=== PATIENT | female | born 1980 | race Caucasian/White ===

== ENCOUNTER 2023-05-13 22:37 | Emergency (ER) | payer OTHER, SELFPAY ==
[2023-05-13 22:39] VITALS: BP 110/69; PULSE 84; RESP 16; TEMP 36.3; O2SAT 97; BMI 30.6
--- NOTE | 2023-05-13 22:57 | US_ITS ---
ACR Level 3 findings have been noted. An addendum which confirms receipt of the report will follow. EXAM: US PELVIS TRANSVAGINAL CLINICAL INDICATION: Recent miscarriage-bleeding with large clots TECHNIQUE: Transvaginal pelvic ultrasound was performed with grayscale and color Doppler imaging. Transvaginal imaging was used for better evaluation of the endometrium and adnexa. COMPARISON: No relevant prior studies available. FINDINGS: UTERUS/CERVIX: Thickened and heterogeneous endometrial complex containing anechoic areas and measuring up to 2.5 cm in thickness. There is associated internal blood flow. Uterus measures 11.0 x 8.2 x 6.7 cm. Anteverted. There is no uterine mass. RIGHT OVARY: Blood flow demonstrated to both ovaries. Right ovary measures 3.6 x 2.3 x 2.2 cm. Left ovary measures 5.1 x 3.6 x 2.3 cm and contains a 2.9 cm dominant follicular cyst. LEFT OVARY: See above. FREE FLUID: No adnexal mass. Small amount of free fluid in pelvic cul-de-sac. BLADDER: Empty bladder which cannot be evaluated with this probe. US/Transvaginal Non- IMPRESSION: Findings are concerning for retained products of conception. Benign ovaries. Electronically Signed: Flavio Pacheco MD at 0:26 EDT ,
[2023-05-13 23:19] LABS: Mucous, Urine 0 SEEN /hpf (<or=2+); Squamous Epithelial Cells - UA 0 SEEN /hpf (5-10)
[2023-05-13 23:21] LABS: Color, Urine Red (Yellow); Glucose, Dipstick Normal (Normal); Ketone-Dipstick 5 mg/dl (Negative); Leukocyte Esterase-Dipstick 100 /ul (Negative); Nitrite-Dipstick Negative (Negative); Occult Blood-Urine 250 /ul (Negative); Protein-Dipstick 100 mg/dl (Negative); Urine Bilirubin Dipstick Negative (Negative); Urine Clarity Cloudy (Clear); Urine Urobilinogen Normal (Normal)
--- NOTE | 2023-05-13 23:35 | EDS_ITS ---
HPI HPI - Female History of Present Illness Chief Complaint: Vag Bleeding Informant: patient and spouse/S.O. Bleeding Issue: Positive for Vaginal bleeding and Passing clots Onset: Days (3) Context: Gradual Onset Timing: Continuous Current Severity: Heavy Maximum Severity: Heavy Associated Symptoms Associated Symptoms: Negative for Dysuria or Frequency Narrative Narrative: Patient presents with vaginal bleeding and passing clots that has been constant for the last 3 days. Patient states it is heavier than her normal period. Patient is passing large clots. Patient had a recent miscarriage. Patient is unsure if her miscarriage was completed or not. Patient was approximately 13 weeks at the time of the miscarriage. Patient denies any pelvic pain. Patient admits to some mild back pain. Patient denies any urinary complaints. PFSH COUNT INCLUDES THE [facility] Medical History (Updated 05/14/23 @ 01:[address] Adam Sandy DO) Lyme disease Medical History no medical history Allergy/AdvReac Type Severity Reaction Status Date / Time No Known Allergies Allergy Verified 05/13/23 23:16 Surgical History (Updated 05/13/23 @ 23:[address] Adam Sandy DO) Hx of dilation and curettage Social History Smoking Status: Never smoker ROS ROS ED Constitutional Constitutional ED: Denies chills or fever(s) Eyes Eyes: Denies blurry vision or change in vision ENT ENT ED: Denies rhinorrhea or sore throat Cardiovascular Cardiovascular: Denies chest pain or palpitations Respiratory/Chest Respiratory/Chest: Denies cough or dyspnea Gastrointestinal Gastrointestinal: Denies nausea or vomiting Genitourinary Genitourinary ED: Denies dysuria or hematuria Musculoskeletal Musculoskeletal: Reports back pain; Denies neck pain Integumentary Denies abscess or rash Neurologic Neurologic: Denies headache(s) or weakness Allergic/Immunologic Allergic/Immunologic ED: Denies mouth swelling or urticaria EXAM Physical Exam Const Vital Signs: 05/13/23 22:39 05/14/23 01:24 05/14/23 01:25 Temperature 97.4 F L Temperature Source Temporal Pulse Rate 84 81 Respiratory Rate 16 16 18 Blood Pressure 110/69 112/71 Blood Pressure Mean 82 Pulse Ox 97 99 Positive well nourished and well developed General Appearance ED: well developed and NAD HEENT Reports moist mucous membranes Neck supple and no JVD Resp normal respiratory effort and clear to auscultation bilaterally Cardio regular rate, regular rhythm and no murmurs GI normal to inspection, nondistended, normoactive bowel sounds and non-tender Palpation: soft Extremity normal to inspection General Extremety ED: Negative for edema or tenderness General Extremity: Negative for edema Neuro oriented x3, CN's II-XII intact bilaterally and no sensory deficits noted Sensorium / Orientation: alert Motor Exam: strength 5/5 throughout Psych mental status grossly normal Skin no rashes or lesions noted MDM MDM MDM Narrative Medical decision making narrative: Differential diagnosis includes retained products of conception, menorrhagia, dysfunctional uterine bleeding and urinary tract infection. CBC will be obtained to assess for leukocytosis and anemia. Type and Rh will be obtained to assess for type and Rh status. Urinalysis will be obtained to assess for urinary tract infection. Transvaginal ultrasound will be obtained to assess for products of conception. Lab Data Attestation: I reviewed the patient's lab results. Lab results narrative: CBC was reviewed. There is a mild anemia with a hemoglobin of 11.6 and hemat ocrit 34.1. Platelets were normal. Blood type was O+. Quantitative hCG was 10. Urinalysis was reviewed. Leukocyte esterase was 100. There is 0-5 white blood cells. Occult blood was 250. There were greater than 100 red blood cells. Labs: Laboratory Results - last 24 hr 05/13/23 05/13/23 05/13/23 22:05 23:05 23:05 WBC 4.4 RBC 4.01 L Hgb 11.6 L Hct 34.1 L MCV 85.0 MCH 28.9 MCHC 34.0 RDW Std Deviation 40.6 RDW Coeff of Ray 13.2 Plt Count 240 MPV 9.5 Immature Gran % (Auto) 0.500 Neut % (Auto) 52.5 Lymph % (Auto) 35.3 [place] % (Auto) 7.8 Eos % (Auto) 3.4 Baso % (Auto) 0.5 Absolute Neuts (auto) 2.3 Absolute Lymphs (auto) 1.54 Nucleated RBC % 0 HCG, Quant 10 H Urine Color Urine Clarity Urine pH Ur Specific [place] Urine Protein Urine Glucose (UA) Urine Ketones Urine Occult Blood Urine Nitrite Urine Bilirubin Urine Urobilinogen Ur Leukocyte Esterase Urine RBC Urine WBC Ur Squamous Epith Cells Urine Bacteria Urine Mucus Blood Type O POSITIVE 05/13/23 23:10 WBC RBC Hgb Hct MCV MCH MCHC RDW Std Deviation RDW Coeff of Ray Plt Count MPV Immature Gran % (Auto) Neut % (Auto) Lymph % (Auto) [place] % (Auto) Eos % (Auto) Baso % (Auto) Absolute Neuts (auto) Absolute Lymphs (auto) Nucleated RBC % HCG, Quant Urine Color Red Urine Clarity Cloudy Urine pH 7.0 Ur Specific [place] 1.010 Urine Protein 100 H Urine Glucose (UA) Normal Urine Ketones 5 H Urine Occult Blood 250 H Urine Nitrite Negative Urine Bilirubin Negative Urine Urobilinogen Normal Ur Leukocyte Esterase 100 H Urine RBC > 100 SEEN Urine WBC 0-5 SEEN Ur Squamous Epith Cells 0 SEEN Urine Bacteria 2+ Urine Mucus 0 SEEN Blood Type Radiography Diagnostic Testing: Clinical Impression(s) from Imaging Studies Transvaginal US 05/13/23 22:57 IMPRESSION: Findings are concerning for retained products of conception. Benign ovaries. Electronically Signed: Flavio Pacheco MD at 0:26 EDT , ADDENDUM: 05/14/23 0040 IMPRESSION: Findings are concerning for retained products of conception. Benign ovaries. N.B. : Adam Sandy DO, confirmed on 05/14/2023 00:33:19 (ET) that the healthcare facility has received the radiology report. Electronically Signed: Flavio Pacheco MD at 0:26 EDT , Pelvic ultrasound was obtained. There are findings concerning for retained products of conception. This was interpreted by the radiologist and was also independently reviewed by myself. Treatment and Re-Evaluation Narrative: Patient is feeling better on reevaluation. Patient was advised of her findings. Case was discussed with Dr. Conti from [facility]. She did not feel the patient required emergent D&C at this time. Patient was instructed to call her office tomorrow to schedule outpatient evaluation for D&C. Patient and understood and were agreeable with the plan. All questions were answered. Discharge Plan Triage Chief Complaint: Vag Bleeding ED Provider: Adam Sandy Dx/Rx/DC Orders Clinical Impression: Retained products of conception, Vaginal bleeding Instructions: ED MISCARRIAGE Incomplete Primary Care Provider: Care Physician,No Primary Referrals: Priscila Conti MD [Med Staff - Active Staff] - As soon as possible (Call tomorrow to schedule appointment for D&C.) Care Physician,No Primary [Primary Care Provider] - Disposition Disposition: Home, Self Care Discharge Date/Time: 05/14/23 01:26
[2023-05-13 23:36] LABS: Bacteria 2+ /hpf (None Seen); Red Blood Cells-Urine > 100 SEEN /hpf (0-5); White Blood Cells 0-5 SEEN /hpf (0-5)
[2023-05-13 23:48] LABS: Absolute Lymphocyte Count 1.54 X10^3/uL (0.83-4.51); Absolute Neutrophil Count 2.3 X10^3/uL (2.0-7.7); Basophil# 0.02 X10^3/uL; Basophil% 0.5 % (0-1); Eosinophil# 0.15 X10^3/uL; Eosinophils% 3.4 % (0-5); Hematocrit 34.1 % (37-47); Hemoglobin 11.6 g/dL (12.0-15.0); Lymphocyte # 1.54 X10^3/ul (0.83-4.51); Lymphocyte % 35.3 % (19-41); Mean Corpuscular Hgb 28.9 pg (27.0-32.0); Mean Platelet Vol. 9.5 fl (6.2-12.0); Monocyte# 0.34 X10^3/uL; Monocyte% 7.8 % (0-10); NRBC Flagged by Analyzer 0 % (0-5); Neutrophil # 2.29 X10^3/uL (2.7-7.7); Neutrophil % 52.5 % (47-70); Platelet Count 240 K/mm3 (150-450); RBC Distribution Width CV 13.2 % (11.6-14.6); RBC Distribution Width SD 40.6 fl (35.1-43.9); Red Blood Count 4.01 M/mm3 (4.2-5.4); White Blood Count 4.4 K/mm3 (4.4-11.0)
[2023-05-14 00:01] LABS: hCG Titer Quant., Serum 10 mIU/mL (1-3)
[2023-05-14 01:24] VITALS: RESP 16
[2023-05-14 01:25] VITALS: BP 112/71; PULSE 81; RESP 18; O2SAT 99
== END 2023-05-14 01:26 | disposition home or self-care (01) ==
PROVIDERS: Emergency Provider Emergency Medicine; Visit Provider Emergency Medicine
DX: O03.4 Incomplete spontaneous abortion without complication (principal)
CPT/HCPCS: 76830; 81001; 84702; 85025; 86900; 86901; 99282; A4216